=== PATIENT | male | born 1980 | race Caucasian/White ===

== ENCOUNTER 2016-08-02 01:25 | Emergency (ER) | payer SELFPAY ==
[2016-08-02 01:31] VITALS: BP 135/89
== END 2016-08-02 04:10 | disposition left against medical advice (07) ==
LOC: ED 01:25
DX: S51.812A Laceration without foreign body of left forearm, initial encounter (principal); X58.XXXA Exposure to other specified factors, initial encounter; Y93.89 Activity, other specified; Y99.9 Unspecified external cause status; Y92.89 Other specified places as the place of occurrence of the external cause; Z53.21 Procedure and treatment not carried out due to patient leaving prior to being seen by health care provider